=== PATIENT | male | born 1975 | race Caucasian/White ===

== ENCOUNTER 2023-08-08 12:14 | Inpatient (IN) | payer MEDICAID, OTHER ==
[2023-08-08] VITALS (38 sets, daily range): BP systolic 84–138; BP diastolic 49–97; PULSE 66–132; RESP 14–35; TEMP 98.4–99; O2SAT 88–100
[~2023-08-08] VITALS: Ht 175.3 cm; Wt 96.7 kg
[2023-08-08] MEDS ORDERED: ETOMIDATE (2MG/ML) 20ML VIAL IV ONE (12:22)
[2023-08-08] MEDS ORDERED: SUCCINYLCHOLINE CHLORIDE 20 MG/ML 10ML VIAL IV ONE ×2 (12:22→12:25)
[2023-08-08] MEDS ORDERED: PROPOFOL 100 ML IV ONE (12:26)
[2023-08-08] MEDS: PROPOFOL 100 ML IV SCH ×4 (12:27→21:56)
[2023-08-08] MEDS ORDERED: MIDAZOLAM DRIP 50 mg/50mL 50 ML IV ONE (12:42)
[2023-08-08] MEDS: MIDAZOLAM DRIP 50 mg/50mL 50 ML IV SCH ×4 (12:43→21:55)
[2023-08-08] MEDS ORDERED: SODIUM CHLORIDE 0.9% 1,000 ML IVB ONE (12:45)
[2023-08-08 12:53] LABS: Hematocrit 54.4 % (41.0-53.0); Hemoglobin 18.6 g/dL (13.5-17.5); Mean Corpuscular Hgb Conc. 34.3 g/dL (32.0-36.0); Mean Corpuscular Volume 96.2 fL (80.0-100.0); Red Blood Cells 5.65 10^6/uL (4.5-5.90); Red Cell Distribution Width 12.9 % (11.8-14.3)
[2023-08-08] MEDS ORDERED: fentaNYL Drip 2500mCg/250mlNS 250 ML IV ONE (13:06)
[2023-08-08] MEDS: fentaNYL Drip 2500mCg/250mlNS 250 ML IV SCH ×2 (13:07→14:02)
[2023-08-08 13:09] LABS: INR 1.22 (0.9-1.15); Partial Thromboplastin Time 30.4 SEC (24.5-34.5); Prothrombin Time 12.6 sec (9.3-11.8)
[2023-08-08 13:10] LABS: Alanine Aminotransferase 30 U/L (7-40); Albumin 5.5 g/dL (3.2-4.8); Alkaline Phosphatase 90 U/L (46-116); Anion Gap 16 (5-15); Aspartate Aminotransferase 42 U/L (13-40); BUN/Creatinine Ratio 11.8 (10.0-20.0); Bilirubin, Total 1.2 mg/dL (0.2-1.0); Blood Alcohol < 3.0 mg/dL (<10); Blood Urea Nitrogen 18 mg/dL (9-23); Calcium 9.3 mg/dL (8.7-10.4); Carbon Dioxide 19 mmol/L (20-30); Chloride 106 mmol/L (98-107); Glucose 172 mg/dL (74-106); Lactic Acid w/Reflex 6.2 mmol/L (0.4-2.0); Potassium 4.3 mmol/L (3.5-5.1); Sodium 141 mmol/L (136-145); Total Protein 8.6 g/dL (5.7-8.2); White Blood Cell 35.1 10^3/uL (4.4-10.8)
[2023-08-08 13:12] LABS: Basophils % (manual) 0 (0.0-2.0); Blast Cells 0; Eosinophils % (manual) 0 (0-7); Metamyelocytes % 0; Myelocytes % 0; Promyelocytes % 0; Reactive Lymphocytes 0
[2023-08-08] MEDS ORDERED: SODIUM CHLORIDE 0.9% 1,000 ML IV ONE (13:45)
[2023-08-08] MEDS ORDERED: cefTRIAXone 1GM/50ML D5W 50 ML IV ONE ×2 (13:45→14:00)
[2023-08-08] MEDS ORDERED: levoFLOXacin 500MG 100 ML IV ONE ×2 (13:45→14:00)
[2023-08-08 13:47] LABS: Band Neutrophils % (manual) 4; Lymphocytes % (manual) 2 (10.0-50.0); Monocytes % (manual) 7 (0-12); Platelet Estimate Adequate
[2023-08-08 13:52] LABS: Urine Bacteria FEW /hpf (None Seen); Urine Blood 3+ /uL (Negative); Urine Clarity CLOUDY (Clear); Urine Color Red (Yellow); Urine Hyaline Cast MOD /lpf (0 - 2); Urine Mucus FEW (None Seen); Urine Protein, UAD 2+ (Negative); Urine Specific Gravity 1.017 (1.001-1.035); Urine Urobilinogen Normal (Negative); Urine WBC 143 /hpf (0 - 3); Urine WBC Clumps PRESENT /hpf (None Seen)
[2023-08-08 14:08] LABS: Amphetamine Screen, Urine Neg (NEGATIVE)
[2023-08-08 14:09] LABS: Barbiturate Scree,Urine Neg (NEGATIVE); Benzodiazephine Screen, Urine Pos (NEGATIVE); Cannabinoid Screen, Urine Pos (NEGATIVE); Cocaine Screen, Urine Neg (NEGATIVE); Opiate Scree,Urine Neg (NEGATIVE); Phencyclidine Screen, Urine Neg (NEGATIVE)
[2023-08-08] MEDS ORDERED: SODIUM CHLORIDE 0.9% 2,450 ML IV ONE (15:45)
[2023-08-08] MEDS ORDERED: ONDANSETRON HCL 4 MG/2 ML VIAL IV PRN (15:45)
[2023-08-08] MEDS: SODIUM CHLORIDE 0.9% 1,000 ML IV SCH ×2 (15:45→20:49)
[2023-08-08] MEDS ORDERED: ACETAMINOPHEN 325 MG TAB PO PRN (15:45)
[2023-08-08] MEDS ORDERED: VANCOMYCIN PER PHARMACY 1,000 MG IV SCH (15:45)
[2023-08-08] MEDS ORDERED: MORPHINE SULFATE INJ 2 MG/ml SYRG IV PRN (15:45)
[2023-08-08] MEDS ORDERED: NITROGLYCERIN 0.4 MG SL TAB SL PRN (15:45)
[2023-08-08] MEDS ORDERED: DEXTROSE (50%) 50ML SYRG IV PRN (16:00)
[2023-08-08] MEDS ORDERED: VANCOMYCIN 1GM/250ML 250 ML IV SCH (17:00)
[2023-08-08] MEDS: ACCU-CHEK COMFORT CURVE STRIP VI SCH ×2 (18:00→23:32)
[2023-08-08] MEDS: InsuLIN REG 1unit/0.01ml Soln (100units/ml) SC SCH ×2 (18:00→23:32)
[2023-08-08] MEDS: NOREPINEPHRINE 8 MG/250ML KIT 250 ML IV SCH (19:31)
[2023-08-08] MEDS: VANCOMYCIN 1GM/250ML 250 ML IV SCH (20:48)
[2023-08-08] MEDS: FOLIC ACID 1 MG, MULTIPLE VITAMIN 10 ML, THIAMINE INJ 100 MG in SODIUM CHLORIDE 0.9% 1,... INJ SCH (21:20)
[2023-08-08] MEDS: CEFEPIME 1GM/ 50ML 50 ML IV SCH (22:40)
[2023-08-09] VITALS (111 sets, daily range): BP systolic 85–123; BP diastolic 45–81; PULSE 62–86; RESP 12–17; TEMP 97.5–98.6; O2SAT 96–99
[2023-08-09] MEDS: MIDAZOLAM DRIP 50 mg/50mL 50 ML IV SCH ×4 (01:21→18:39)
[2023-08-09] MEDS: PROPOFOL 100 ML IV SCH ×4 (01:47→22:14)
[2023-08-09 04:19] LABS: Basophils # (auto) 0 10 ^3/uL (0-0.2); Basophils % (auto) 0.1 % (0.0-2.0); Eosinophils # (auto) 0 10 ^3/uL (0-0.8); Hematocrit 42.9 % (41.0-53.0); Hemoglobin 14.8 g/dL (13.5-17.5); Lymphocytes # (auto) 0.8 10 ^3/uL (0.4-5.4); Lymphocytes % (auto) 4.4 % (10.0-50.0); Mean Corpuscular Hemoglobin 33.3 pg (28.0-32.0); Mean Corpuscular Hgb Conc. 34.5 g/dL (32.0-36.0); Mean Corpuscular Volume 96.5 fL (80.0-100.0); Monocytes % (auto) 10.7 % (0.0-12.0); Neutrophils # (auto) 15.6 10 ^3/uL (1.6-8.6); Neutrophils % (auto) 84.8 % (37.0-80.0); Red Blood Cells 4.45 10^6/uL (4.5-5.90); Red Cell Distribution Width 13.4 % (11.8-14.3); White Blood Cell 18.4 10^3/uL (4.4-10.8)
[2023-08-09] MEDS: CEFEPIME 1GM/ 50ML 50 ML IV SCH ×3 (05:07→21:11)
[2023-08-09 05:11] LABS: Alanine Aminotransferase 24 U/L (7-40); Albumin 3.9 g/dL (3.2-4.8); Alkaline Phosphatase 44 U/L (46-116); Anion Gap 11 (5-15); Aspartate Aminotransferase 34 U/L (13-40); BUN/Creatinine Ratio 9.2 (10.0-20.0); Bilirubin, Total 0.6 mg/dL (0.2-1.0); Blood Urea Nitrogen 27 mg/dL (9-23); Calcium 8.1 mg/dL (8.5-10.1); Carbon Dioxide 16 mmol/L (20-30); Chloride 112 mmol/L (98-107); Glucose 114 mg/dL (74-106); Potassium 5.2 mmol/L (3.5-5.1); Sodium 139 mmol/L (136-145); Total Protein 6.2 g/dL (5.7-8.2)
[2023-08-09] MEDS: InsuLIN REG 1unit/0.01ml Soln (100units/ml) SC SCH ×3 (05:14→17:41)
[2023-08-09] MEDS: ACCU-CHEK COMFORT CURVE STRIP VI SCH ×3 (05:15→17:37)
[2023-08-09] MEDS: fentaNYL Drip 2500mCg/250mlNS 250 ML IV SCH (05:23)
[2023-08-09] MEDS: SODIUM CHLORIDE 0.9% 1,000 ML IV SCH ×2 (08:25→16:45)
[2023-08-09] MEDS: ENOXAPARIN SOD 40 MG/0.4 ML SYRINGE SC SCH (10:11)
[2023-08-09] MEDS: VANCOMYCIN 1GM/250ML 250 ML IV SCH (10:11)
[2023-08-09] MEDS: PANTOPRAZOLE 40 MG/10 ML VIAL INJ IV SCH (10:11)
[2023-08-09] MEDS ORDERED: SOD CHL IV ONE (10:45)
[2023-08-09] MEDS ORDERED: SODIUM BICARBONATE IV ONE (10:45)
[2023-08-09] MEDS ORDERED: SODIUM BICARBONATE 50ML VIAL 50 ML in SOD CHL 0.45% 1,000 ML IV ONE (12:00)
[2023-08-09] MEDS: FOLIC ACID 1 MG, MULTIPLE VITAMIN 10 ML, THIAMINE INJ 100 MG in SODIUM CHLORIDE 0.9% 1,... INJ SCH (12:00)
[2023-08-09 15:03] LABS: Base Excess -13.5 mmol/L (-2.0-2.0)
[2023-08-09] MEDS ORDERED: LIDOCAINE 1% (LOCAL ANESTH.) PF 5ml SDV ID ONE (17:00)
[2023-08-09] MEDS ORDERED: SODIUM BICARBONATE 8.4 % INJ 50ML VIAL IV ONE (18:00)
[2023-08-09] MEDS: NOREPINEPHRINE 8 MG/250ML KIT 250 ML IV SCH ×2 (18:45→23:49)
[2023-08-09] MEDS: SODIUM CHLOR 0.9% PF (SALINE LOCK) 10ML VIAL/SYR IV SCH (22:13)
[2023-08-10] VITALS (108 sets, daily range): BP systolic 92–127; BP diastolic 40–81; PULSE 58–96; RESP 14–19; TEMP 96.4–98.8; O2SAT 93–100
[2023-08-10] MEDS: ACCU-CHEK COMFORT CURVE STRIP VI SCH ×2 (00:16→05:17)
[2023-08-10] MEDS: SODIUM CHLORIDE 0.9% 1,000 ML IV SCH ×3 (01:05→15:18)
[2023-08-10 04:16] LABS: Basophils # (auto) 0 10 ^3/uL (0-0.2); Basophils % (auto) 0.2 % (0.0-2.0); Eosinophils # (auto) 0 10 ^3/uL (0-0.8); Eosinophils % (auto) 0.1 % (0.0-7.0); Hematocrit 37.7 % (41.0-53.0); Lymphocytes # (auto) 0.7 10 ^3/uL (0.4-5.4); Lymphocytes % (auto) 6.6 % (10.0-50.0); Mean Corpuscular Hgb Conc. 34.5 g/dL (32.0-36.0); Mean Corpuscular Volume 95.5 fL (80.0-100.0); Monocytes # (auto) 1.1 10 ^3/uL (0-1.3); Monocytes % (auto) 10.8 % (0.0-12.0); Neutrophils # (auto) 8.2 10 ^3/uL (1.6-8.6); Neutrophils % (auto) 82.3 % (37.0-80.0); Red Blood Cells 3.95 10^6/uL (4.5-5.90); Red Cell Distribution Width 13.6 % (11.8-14.3)
[2023-08-10 04:23] LABS: Chloride 111 mmol/L (98-107); Sodium 141 mmol/L (136-145)
[2023-08-10 04:24] LABS: Anion Gap 12 (5-15); Carbon Dioxide 18 mmol/L (20-30)
[2023-08-10 04:29] LABS: BUN/Creatinine Ratio 6.1 (10.0-20.0); Blood Urea Nitrogen 33 mg/dL (9-23); Glucose 90 mg/dL (74-106)
[2023-08-10] MEDS: InsuLIN REG 1unit/0.01ml Soln (100units/ml) SC SCH ×2 (05:17)
[2023-08-10] MEDS: PROPOFOL 100 ML IV SCH ×2 (05:37→09:34)
[2023-08-10] MEDS: MIDAZOLAM DRIP 50 mg/50mL 50 ML IV SCH (05:38)
[2023-08-10] MEDS: fentaNYL Drip 2500mCg/250mlNS 250 ML IV SCH (05:39)
[2023-08-10 07:00] LABS: Base Excess -9.7 mmol/L (-2.0-2.0)
[2023-08-10] MEDS: PANTOPRAZOLE 40 MG/10 ML VIAL INJ IV SCH (09:33)
[2023-08-10] MEDS: CEFEPIME 1GM/ 50ML 50 ML IV SCH ×2 (09:33→21:29)
[2023-08-10] MEDS: SODIUM CHLOR 0.9% PF (SALINE LOCK) 10ML VIAL/SYR IV SCH ×2 (09:35→21:01)
[2023-08-10] MEDS: ENOXAPARIN SOD 40 MG/0.4 ML SYRINGE SC SCH (09:35)
[2023-08-10] MEDS: FOLIC ACID 1 MG, MULTIPLE VITAMIN 10 ML, THIAMINE INJ 100 MG in SODIUM CHLORIDE 0.9% 1,... INJ SCH (12:15)
[2023-08-10] MEDS ORDERED: SODIUM BICARBONATE 50ML VIAL 50 ML in SOD CHL 0.45% 1,000 ML IV ONE (15:20)
[2023-08-10] MEDS ORDERED: BUMETANIDE 2.5mg/10ml (0.25 mg/ml) INJ IV ONE (15:30)
[2023-08-11] VITALS (108 sets, daily range): BP systolic 112–162; BP diastolic 66–99; PULSE 72–88; RESP 13–23; TEMP 98.1–98.8; O2SAT 96–100
[2023-08-11 04:31] LABS: Basophils # (auto) 0 10 ^3/uL (0-0.2); Basophils % (auto) 0.1 % (0.0-2.0); Eosinophils # (auto) 0 10 ^3/uL (0-0.8); Eosinophils % (auto) 0.1 % (0.0-7.0); Hematocrit 35.5 % (41.0-53.0); Hemoglobin 12.3 g/dL (13.5-17.5); Lymphocytes # (auto) 0.4 10 ^3/uL (0.4-5.4); Mean Corpuscular Hemoglobin 33.2 pg (28.0-32.0); Mean Corpuscular Hgb Conc. 34.6 g/dL (32.0-36.0); Monocytes # (auto) 0.7 10 ^3/uL (0-1.3); Monocytes % (auto) 8.1 % (0.0-12.0); Neutrophils # (auto) 7.2 10 ^3/uL (1.6-8.6); Neutrophils % (auto) 86.7 % (37.0-80.0); Red Cell Distribution Width 13.2 % (11.8-14.3); White Blood Cell 8.3 10^3/uL (4.4-10.8)
[2023-08-11 05:08] LABS: Chloride 111 mmol/L (98-107); Potassium 4.2 mmol/L (3.5-5.1); Sodium 141 mmol/L (136-145)
[2023-08-11 05:09] LABS: Anion Gap 14 (5-15); Calcium 7.8 mg/dL (8.7-10.4); Carbon Dioxide 16 mmol/L (20-30)
[2023-08-11 05:14] LABS: BUN/Creatinine Ratio 5.3 (10.0-20.0); Blood Urea Nitrogen 36 mg/dL (9-23); Glucose 62 mg/dL (74-106)
[2023-08-11] MEDS: SODIUM CHLORIDE 0.9% 1,000 ML IV SCH ×3 (05:36→19:05)
[2023-08-11] MEDS: ENOXAPARIN SOD 40 MG/0.4 ML SYRINGE SC SCH (10:00)
[2023-08-11] MEDS ORDERED: FUROSEMIDE 100 MG/10ML VIAL IV SCH (10:00)
[2023-08-11] MEDS: CEFEPIME 1GM/ 50ML 50 ML IV SCH ×2 (10:35→21:04)
[2023-08-11] MEDS: PANTOPRAZOLE 40 MG/10 ML VIAL INJ IV SCH (10:36)
[2023-08-11] MEDS: SODIUM CHLOR 0.9% PF (SALINE LOCK) 10ML VIAL/SYR IV SCH ×2 (10:36→21:04)
[2023-08-11] MEDS: FOLIC ACID 1 MG, MULTIPLE VITAMIN 10 ML, THIAMINE INJ 100 MG in SODIUM CHLORIDE 0.9% 1,... INJ SCH (13:01)
[2023-08-11] MEDS: PROPOFOL 100 ML IV SCH (13:45)
[2023-08-11] MEDS: fentaNYL Drip 2500mCg/250mlNS 250 ML IV SCH (13:45)
[2023-08-11] MEDS: MIDAZOLAM DRIP 50 mg/50mL 50 ML IV SCH (13:45)
[2023-08-11 14:42] LABS: Base Excess -14.9 mmol/L (-2.0-2.0)
[2023-08-11] MEDS ORDERED: SODIUM BICARBONATE 8.4 % INJ 50ML VIAL IV ONE (15:45)
[2023-08-11] MEDS ORDERED: SODIUM BICARBONATE 50ML VIAL 50 ML in SOD CHL 0.45% 1,000 ML IV ONE (18:15)
[2023-08-11] MEDS: NOREPINEPHRINE 8 MG/250ML KIT 250 ML IV SCH (18:45)
[2023-08-12] VITALS (48 sets, daily range): BP systolic 121–196; BP diastolic 73–119; PULSE 16–112; RESP 12–25; TEMP 98.1–99.2; O2SAT 92–99
[2023-08-12 04:12] LABS: Basophils # (auto) 0 10 ^3/uL (0-0.2); Basophils % (auto) 0.2 % (0.0-2.0); Eosinophils # (auto) 0 10 ^3/uL (0-0.8); Eosinophils % (auto) 0.2 % (0.0-7.0); Hematocrit 34.7 % (41.0-53.0); Hemoglobin 12.1 g/dL (13.5-17.5); Lymphocytes # (auto) 0.4 10 ^3/uL (0.4-5.4); Lymphocytes % (auto) 5.1 % (10.0-50.0); Mean Corpuscular Hemoglobin 33.3 pg (28.0-32.0); Mean Corpuscular Hgb Conc. 34.8 g/dL (32.0-36.0); Mean Corpuscular Volume 95.6 fL (80.0-100.0); Monocytes # (auto) 0.8 10 ^3/uL (0-1.3); Monocytes % (auto) 10.8 % (0.0-12.0); Neutrophils # (auto) 6.5 10 ^3/uL (1.6-8.6); Neutrophils % (auto) 83.7 % (37.0-80.0); Red Blood Cells 3.63 10^6/uL (4.5-5.90); Red Cell Distribution Width 13.1 % (11.8-14.3); White Blood Cell 7.8 10^3/uL (4.4-10.8)
[2023-08-12 04:26] LABS: Chloride 114 mmol/L (98-107); Potassium 4.4 mmol/L (3.5-5.1); Sodium 144 mmol/L (136-145)
[2023-08-12 04:27] LABS: Anion Gap 16 (5-15); Calcium 7.9 mg/dL (8.7-10.4); Carbon Dioxide 14 mmol/L (20-30)
[2023-08-12 04:32] LABS: BUN/Creatinine Ratio 5.8 (10.0-20.0); Glucose 92 mg/dL (74-106)
[2023-08-12 04:36] LABS: Blood Urea Nitrogen 48 mg/dL (9-23)
[2023-08-12] MEDS: SODIUM CHLORIDE 0.9% 1,000 ML IV SCH (05:39)
[2023-08-12] MEDS: fentaNYL Drip 2500mCg/250mlNS 250 ML IV SCH (08:33)
[2023-08-12] MEDS: MIDAZOLAM DRIP 50 mg/50mL 50 ML IV SCH (08:34)
[2023-08-12 09:27] LABS: Hepatitis B Surface Antigen Negative (Negative)
[2023-08-12 09:48] LABS: Hepatitis A Ab IgM Negative
[2023-08-12 09:49] LABS: Hepatitis B Core IgM Negative; Hepatitis C Antibody Negative (Negative)
[2023-08-12] MEDS ORDERED: SODIUM BICARBONATE 50ML VIAL 100 ML in D5W 5% 1,000 ML IV SCH (10:00)
== END 2023-08-12 10:45 | disposition short-term general hospital (02) | DRG 720 ==
LOC: EDBD 12:14 → ER 12:14 → TELE 15:55 → ICU WEST 17:10
PROVIDERS: ADMIT Nurse Practitioner Family; ATTEND Internal Medicine Pulmonary Disease
PROC: 5A1955Z Respiratory Ventilation, Greater than 96 Consecutive Hours (ICD-10-PCS; principal; 2023-08-08)
PROC: 0BH17EZ Insertion of Endotracheal Airway into Trachea, Via Natural or Artificial Opening (ICD-10-PCS; 2023-08-08)
PROC: 02HV33Z Insertion of Infusion Device into Superior Vena Cava, Percutaneous Approach (ICD-10-PCS; 2023-08-09)
PROC: B548ZZA Ultrasonography of Superior Vena Cava, Guidance (ICD-10-PCS; 2023-08-09)
DX: A41.9 Sepsis, unspecified organism (principal); N17.0 Acute kidney failure with tubular necrosis; J96.01 Acute respiratory failure with hypoxia; G92.9 Unspecified toxic encephalopathy; G40.901 Epilepsy, unspecified, not intractable, with status epilepticus; R65.21 Severe sepsis with septic shock; E87.21 Acute metabolic acidosis; F10.139 Alcohol abuse with withdrawal, unspecified; E86.0 Dehydration; N30.01 Acute cystitis with hematuria; N18.9 Chronic kidney disease, unspecified; E87.5 Hyperkalemia
CPT/HCPCS: 31500; 36415; 36569; 36600; 70450; 70551; 71045; 72125; 80048; 80053; 80074; 80307; 80320; 81001; 82550; 82553; 82805; 82962; 83036; 83605; 83735; 83970; 84100; 84484; 85007; 85025; 85027; 85384; 85610; 85730; 87040; 87070; 87077; 87081; 87086; 87205; 93005; 93306; 94002; 94003; 95819; 96361; 96365; 96368; 99291; C9113; G0378; J0696; J1956; J2250; J2704; J7060

== ENCOUNTER 2023-08-21 14:35 | Inpatient (IN) | payer MEDICAID ==
[~2023-08-21] VITALS: Ht 165.1 cm; Wt 89.0 kg
[2023-08-21 20:46] VITALS: BP 173/97; PULSE 94; PULSE 98; RESP 16; RESP 24; TEMP 99.4; O2SAT 93; O2SAT 94
[2023-08-21] MEDS ORDERED: ACETAMINOPHEN 325 MG TAB PO PRN (22:00)
[2023-08-21] MEDS ORDERED: MORPHINE SULFATE INJ 2 MG/ml SYRG IV PRN (22:00)
[2023-08-21] MEDS ORDERED: LORazepam 2MG/ML-1ML VIAL IV PRN (22:00)
[2023-08-21] MEDS ORDERED: ONDANSETRON HCL 4 MG/2 ML VIAL IV PRN (22:00)
[2023-08-21] MEDS ORDERED: NITROGLYCERIN 0.4 MG SL TAB SL PRN (22:00)
[2023-08-21] MEDS: ATORVASTATIN 20 MG TAB PO SCH (22:42)
[2023-08-21] MEDS: hydrALAZINE HCL 25 MG TAB PO SCH (22:42)
[2023-08-21] MEDS: VALPROIC ACID 250 MG/5 ML ORAL SOLN GT SCH (22:48)
[2023-08-21 23:01] LABS: Basophils # (auto) 0 10 ^3/uL (0-0.2); Basophils % (auto) 0.2 % (0.0-2.0); Eosinophils # (auto) 0 10 ^3/uL (0-0.8); Eosinophils % (auto) 0.1 % (0.0-7.0); Hematocrit 34.3 % (41.0-53.0); Hemoglobin 11.6 g/dL (13.5-17.5); Lymphocytes # (auto) 0.6 10 ^3/uL (0.4-5.4); Lymphocytes % (auto) 3.3 % (10.0-50.0); Mean Corpuscular Hemoglobin 32.2 pg (28.0-32.0); Mean Corpuscular Hgb Conc. 33.6 g/dL (32.0-36.0); Mean Corpuscular Volume 95.7 fL (80.0-100.0); Monocytes # (auto) 1.7 10 ^3/uL (0-1.3); Neutrophils # (auto) 16.6 10 ^3/uL (1.6-8.6); Neutrophils % (auto) 87.4 % (37.0-80.0); Red Blood Cells 3.59 10^6/uL (4.5-5.90); Red Cell Distribution Width 12.8 % (11.8-14.3)
[2023-08-21 23:21] LABS: Alanine Aminotransferase 37 U/L (7-40); Albumin 3.9 g/dL (3.2-4.8); Alkaline Phosphatase 85 U/L (46-116); Anion Gap 14 (5-15); Aspartate Aminotransferase 37 U/L (13-40); BUN/Creatinine Ratio 15.3 (10.0-20.0); Calcium 8.9 mg/dL (8.7-10.4); Carbon Dioxide 28 mmol/L (20-30); Chloride 104 mmol/L (98-107); Glucose 103 mg/dL (74-106); Potassium 3.1 mmol/L (3.5-5.1); Sodium 146 mmol/L (136-145)
[2023-08-21 23:22] LABS: Bilirubin, Total 0.3 mg/dL (0.2-1.0); Total Protein 6.6 g/dL (5.7-8.2)
[2023-08-21 23:24] LABS: Blood Urea Nitrogen 98 mg/dL (9-23)
[2023-08-21] MEDS ORDERED: POTASSIUM CHL 20MEQ/100ML 100 ML IV ONE (23:45)
[2023-08-21] MEDS ORDERED: cefTRIAXone 1GM/50ML D5W 50 ML IV ONE (23:45)
[2023-08-22] VITALS (14 sets, daily range): BP systolic 122–194; BP diastolic 45–128; PULSE 78–102; RESP 10–25; TEMP 96.8–99.4; O2SAT 90–97
[2023-08-22] MEDS: HEPARIN SODIUM (PORCINE) 5000 UNITS/ML 1ML VIAL SC SCH ×3 (00:21→21:09)
[2023-08-22] MEDS: VALPROIC ACID 250 MG/5 ML ORAL SOLN GT SCH ×2 (10:00→21:06)
[2023-08-22] MEDS ORDERED: FOLIC ACID 1 MG TAB PO SCH (10:00)
[2023-08-22] MEDS ORDERED: FOLIC ACID 1 MG, MULTIPLE VITAMIN 10 ML, MAGNESIUM SULF SDV 50% 8 MEQ, THIAMINE INJ 100... INJ SCH ×5 (12:00)
[2023-08-22 13:17] LABS: Urine Bacteria FEW /hpf (None Seen); Urine Blood 1+ /uL (Negative); Urine Clarity Clear (Clear); Urine Color Colorless (Yellow); Urine Protein, UAD 1+ (Negative); Urine Specific Gravity 1.014 (1.001-1.035); Urine Urobilinogen Normal (Negative); Urine WBC 2 /hpf (0 - 3)
[2023-08-22] MEDS: hydrALAZINE HCL 25 MG TAB PO SCH ×2 (13:52→21:06)
[2023-08-22] MEDS: ALLOPURINOL 100 MG TAB PO SCH (13:52)
[2023-08-22 14:00] LABS: Sodium Urine 36 mmol/L (40-220)
[2023-08-22 14:05] LABS: Protein, Urine 85.7 mg/dL (0.0-11.9)
[2023-08-22 14:06] LABS: Amphetamine Screen, Urine Neg (NEGATIVE); Barbiturate Scree,Urine Neg (NEGATIVE); Benzodiazephine Screen, Urine Pos (NEGATIVE); Cocaine Screen, Urine Neg (NEGATIVE); Opiate Scree,Urine Neg (NEGATIVE)
[2023-08-22 14:07] LABS: Creatinine, Urine 72.19 mg/dL (30.0-125.0); Phencyclidine Screen, Urine Neg (NEGATIVE); Urine Protein/Creatinine Ratio 1.19
[2023-08-22 14:45] LABS: Cannabinoid Screen, Urine Pos (NEGATIVE)
[2023-08-22 15:02] LABS: Magnesium 2.7 mg/dL (1.6-2.6)
[2023-08-22 15:04] LABS: Phosphorus 5.7 mg/dL (2.4-5.1)
[2023-08-22] MEDS: OCTREOTIDE ACETATE 100 MCG/ML VL SUBCUT SCH ×2 (15:44→21:08)
[2023-08-22] MEDS: SOD CHL 0.45% 1,000 ML IV SCH ×2 (18:31→23:30)
[2023-08-22] MEDS: ATORVASTATIN 20 MG TAB PO SCH (21:06)
[2023-08-22] MEDS: cefTRIAXone 1GM/50ML D5W 50 ML IV SCH (21:07)
[2023-08-23] VITALS (14 sets, daily range): BP systolic 139–206; BP diastolic 80–112; PULSE 59–91; RESP 10–16; TEMP 97.4–98.4; O2SAT 92–97
[2023-08-23] MEDS: cloNIDine HCL 0.1 MG TAB PO PRN ×2 (02:21→06:44)
[2023-08-23] MEDS: hydrALAZINE HCL 25 MG TAB PO SCH ×3 (05:29→22:59)
[2023-08-23] MEDS: OCTREOTIDE ACETATE 100 MCG/ML VL SUBCUT SCH ×3 (05:30→22:59)
[2023-08-23 05:31] LABS: Basophils # (auto) 0.1 10 ^3/uL (0-0.2); Basophils % (auto) 0.8 % (0.0-2.0); Eosinophils # (auto) 0.1 10 ^3/uL (0-0.8); Eosinophils % (auto) 0.4 % (0.0-7.0); Hematocrit 31.6 % (41.0-53.0); Hemoglobin 10.8 g/dL (13.5-17.5); Lymphocytes # (auto) 0.8 10 ^3/uL (0.4-5.4); Lymphocytes % (auto) 6.4 % (10.0-50.0); Mean Corpuscular Hemoglobin 32.7 pg (28.0-32.0); Mean Corpuscular Hgb Conc. 34.1 g/dL (32.0-36.0); Mean Corpuscular Volume 95.8 fL (80.0-100.0); Monocytes # (auto) 1.3 10 ^3/uL (0-1.3); Monocytes % (auto) 10.1 % (0.0-12.0); Neutrophils # (auto) 10.5 10 ^3/uL (1.6-8.6); Neutrophils % (auto) 82.3 % (37.0-80.0); Red Cell Distribution Width 12.6 % (11.8-14.3); White Blood Cell 12.7 10^3/uL (4.4-10.8)
[2023-08-23 05:43] LABS: Anion Gap 11 (5-15); Carbon Dioxide 28 mmol/L (20-30); Chloride 105 mmol/L (98-107); Potassium 3.1 mmol/L (3.5-5.1); Sodium 144 mmol/L (136-145)
[2023-08-23 05:47] LABS: Calcium 8.2 mg/dL (8.5-10.1)
[2023-08-23 05:50] LABS: BUN/Creatinine Ratio 20.4 (10.0-20.0); Glucose 93 mg/dL (74-106)
[2023-08-23 06:00] LABS: Blood Urea Nitrogen 95 mg/dL (9-23)
[2023-08-23] MEDS: VALPROIC ACID 250 MG/5 ML ORAL SOLN GT SCH (10:15)
[2023-08-23] MEDS: ALLOPURINOL 100 MG TAB PO SCH (10:15)
[2023-08-23] MEDS: SOD CHL 0.45% 1,000 ML IV SCH ×2 (10:15→19:34)
[2023-08-23] MEDS: HEPARIN SODIUM (PORCINE) 5000 UNITS/ML 1ML VIAL SC SCH ×2 (10:16→22:44)
[2023-08-23] MEDS ORDERED: POTASSIUM CHLORIDE 40 MEQ, LIDOCAINE 1% (LOCAL ANESTH.) 4 ML in SODIUM CHL 0.9% 250 ML IV ONE (11:00)
[2023-08-23] MEDS ORDERED: amLODIPine BESYLATE 5 MG TAB PO ONE (11:30)
[2023-08-23] MEDS: FOLIC ACID 1 MG, MULTIPLE VITAMIN 10 ML, MAGNESIUM SULF SDV 50% 8 MEQ, THIAMINE INJ 100... INJ SCH ×5 (12:49)
[2023-08-23] MEDS: cefTRIAXone 1GM/50ML D5W 50 ML IV SCH (21:10)
[2023-08-23] MEDS: QUEtiapine FUMARATE 25 MG TAB PO SCH (22:59)
[2023-08-23] MEDS: MIRTAZAPINE 30 MG TAB PO SCH (23:00)
[2023-08-23] MEDS: ATORVASTATIN 20 MG TAB PO SCH (23:00)
[2023-08-23] MEDS ORDERED: VALPROIC ACID 250 MG/5 ML ORAL SOLN PO SCH (23:00)
[2023-08-23] MEDS ORDERED: VALPROIC ACID 250 MG/5 ML ORAL SOLN PO ONE (23:30)
[2023-08-24 05:39] LABS: Basophils # (auto) 0.1 10 ^3/uL (0-0.2); Basophils % (auto) 0.5 % (0.0-2.0); Eosinophils # (auto) 0.1 10 ^3/uL (0-0.8); Eosinophils % (auto) 0.9 % (0.0-7.0); Hematocrit 30.6 % (41.0-53.0); Hemoglobin 10.8 g/dL (13.5-17.5); Lymphocytes # (auto) 0.8 10 ^3/uL (0.4-5.4); Mean Corpuscular Hemoglobin 33.8 pg (28.0-32.0); Mean Corpuscular Hgb Conc. 35.3 g/dL (32.0-36.0); Mean Corpuscular Volume 95.6 fL (80.0-100.0); Monocytes # (auto) 1.2 10 ^3/uL (0-1.3); Monocytes % (auto) 10.8 % (0.0-12.0); Neutrophils # (auto) 8.9 10 ^3/uL (1.6-8.6); Neutrophils % (auto) 80.8 % (37.0-80.0); Nucleated Red Blood Cells % 0.1 %; Red Cell Distribution Width 12.2 % (11.8-14.3); White Blood Cell 10.9 10^3/uL (4.4-10.8)
[2023-08-24] MEDS: SOD CHL 0.45% 1,000 ML IV SCH ×2 (05:40→16:05)
[2023-08-24] MEDS: hydrALAZINE HCL 25 MG TAB PO SCH ×3 (05:42→21:38)
[2023-08-24 05:50] LABS: Anion Gap 10 (5-15); Carbon Dioxide 26 mmol/L (20-30); Chloride 106 mmol/L (98-107); Potassium 3.3 mmol/L (3.5-5.1); Sodium 142 mmol/L (136-145)
[2023-08-24 05:51] LABS: Calcium 8.2 mg/dL (8.7-10.4)
[2023-08-24 05:56] LABS: BUN/Creatinine Ratio 20.7 (10.0-20.0); Glucose 86 mg/dL (74-106)
[2023-08-24 05:58] LABS: Blood Urea Nitrogen 72 mg/dL (9-23)
[2023-08-24] MEDS: OCTREOTIDE ACETATE 100 MCG/ML VL SUBCUT SCH ×3 (05:58→21:45)
[2023-08-24 08:00] VITALS: PULSE 76; PULSE 79; RESP 17
[2023-08-24] MEDS ORDERED: HEPARIN SODIUM (PORCINE) 5000 UNITS/ML 1ML VIAL ONE (09:53)
[2023-08-24] MEDS: VALPROIC ACID 250 MG/5 ML ORAL SOLN PO SCH ×2 (10:01→21:38)
[2023-08-24] MEDS: ALLOPURINOL 100 MG TAB PO SCH (10:01)
[2023-08-24] MEDS: amLODIPine BESYLATE 5 MG TAB PO SCH (10:02)
[2023-08-24] MEDS: HEPARIN SODIUM (PORCINE) 5000 UNITS/ML 1ML VIAL SC SCH ×2 (10:03→21:45)
[2023-08-24] MEDS: FOLIC ACID 1 MG, MULTIPLE VITAMIN 10 ML, MAGNESIUM SULF SDV 50% 8 MEQ, THIAMINE INJ 100... INJ SCH ×5 (12:44)
[2023-08-24] MEDS: cloNIDine HCL 0.1 MG TAB PO PRN (17:30)
[2023-08-24] MEDS ORDERED: LABETALOL HCL 5 MG/ML 4ML SYRINGE IV ONE (18:45)
[2023-08-24 20:00] VITALS: PULSE 77; RESP 17
[2023-08-24] MEDS: cefTRIAXone 1GM/50ML D5W 50 ML IV SCH (21:33)
[2023-08-24] MEDS: ATORVASTATIN 20 MG TAB PO SCH ×2 (21:38→21:50)
[2023-08-24] MEDS: MIRTAZAPINE 30 MG TAB PO SCH (21:38)
[2023-08-24] MEDS: QUEtiapine FUMARATE 25 MG TAB PO SCH ×2 (21:38→21:49)
[2023-08-24 22:00] VITALS: BP 174/101; PULSE 83; RESP 19; TEMP 98.5; O2SAT 95
[2023-08-25] VITALS (10 sets, daily range): BP systolic 136–188; BP diastolic 69–94; PULSE 76–89; RESP 16–20; TEMP 97.9–98.9; O2SAT 95–96
[2023-08-25] MEDS: SOD CHL 0.45% 1,000 ML IV SCH ×3 (01:30→21:30)
[2023-08-25] MEDS: hydrALAZINE HCL 25 MG TAB PO SCH ×3 (05:53→21:14)
[2023-08-25] MEDS: OCTREOTIDE ACETATE 100 MCG/ML VL SUBCUT SCH ×3 (05:54→21:24)
[2023-08-25] MEDS ORDERED: HEPARIN SODIUM (PORCINE) 5000 UNITS/ML 1ML VIAL ONE ×2 (09:48)
[2023-08-25] MEDS: VALPROIC ACID 250 MG/5 ML ORAL SOLN PO SCH ×2 (09:58→21:16)
[2023-08-25] MEDS: ALLOPURINOL 100 MG TAB PO SCH (09:59)
[2023-08-25] MEDS: cloNIDine HCL 0.1 MG TAB PO PRN ×3 (09:59→23:33)
[2023-08-25] MEDS: amLODIPine BESYLATE 5 MG TAB PO SCH (09:59)
[2023-08-25] MEDS: HEPARIN SODIUM (PORCINE) 5000 UNITS/ML 1ML VIAL SC SCH ×2 (10:18→21:19)
[2023-08-25] MEDS: FOLIC ACID 1 MG, MULTIPLE VITAMIN 10 ML, MAGNESIUM SULF SDV 50% 8 MEQ, THIAMINE INJ 100... INJ SCH ×5 (12:27)
[2023-08-25] MEDS: cefTRIAXone 1GM/50ML D5W 50 ML IV SCH (20:57)
[2023-08-25] MEDS: ATORVASTATIN 20 MG TAB PO SCH (21:15)
[2023-08-25] MEDS: MIRTAZAPINE 30 MG TAB PO SCH (22:00)
[2023-08-25] MEDS: QUEtiapine FUMARATE 25 MG TAB PO SCH (22:00)
[2023-08-26] VITALS (7 sets, daily range): BP systolic 142–171; BP diastolic 75–94; PULSE 74–89; RESP 17–18; TEMP 98.3–98.6; O2SAT 93–96
[2023-08-26] MEDS ORDERED: hydrALAZINE HCL 20 MG/ML VL IV ONE (01:00)
[2023-08-26] MEDS: hydrALAZINE HCL 25 MG TAB PO SCH ×3 (05:53→22:00)
[2023-08-26] MEDS: OCTREOTIDE ACETATE 100 MCG/ML VL SUBCUT SCH (05:58)
[2023-08-26] MEDS: SOD CHL 0.45% 1,000 ML IV SCH ×2 (07:30→16:39)
[2023-08-26] MEDS ORDERED: HEPARIN SODIUM (PORCINE) 5000 UNITS/ML 1ML VIAL ONE (09:12)
[2023-08-26] MEDS: amLODIPine BESYLATE 5 MG TAB PO SCH (09:25)
[2023-08-26] MEDS: VALPROIC ACID 250 MG/5 ML ORAL SOLN PO SCH ×2 (09:25→22:00)
[2023-08-26] MEDS: ALLOPURINOL 100 MG TAB PO SCH (09:26)
[2023-08-26] MEDS: HEPARIN SODIUM (PORCINE) 5000 UNITS/ML 1ML VIAL SC SCH ×2 (09:41→22:10)
[2023-08-26 16:13] LABS: Chloride 109 mmol/L (98-107); Potassium 3.2 mmol/L (3.5-5.1); Sodium 141 mmol/L (136-145)
[2023-08-26 16:14] LABS: Anion Gap 8 (5-15); Carbon Dioxide 24 mmol/L (20-30)
[2023-08-26 16:19] LABS: BUN/Creatinine Ratio 16.5 (10.0-20.0); Blood Urea Nitrogen 40 mg/dL (9-23); Glucose 84 mg/dL (74-106)
[2023-08-26] MEDS ORDERED: POTASSIUM EFFERVESENT TAB 25 MEQ PO ONE (17:00)
[2023-08-26] MEDS: FOLIC ACID 1 MG, MULTIPLE VITAMIN 10 ML, MAGNESIUM SULF SDV 50% 8 MEQ, THIAMINE INJ 100... INJ SCH ×5 (17:35)
[2023-08-26] MEDS: cefTRIAXone 1GM/50ML D5W 50 ML IV SCH (21:10)
[2023-08-26] MEDS: QUEtiapine FUMARATE 25 MG TAB PO SCH (22:00)
[2023-08-26] MEDS: MIRTAZAPINE 30 MG TAB PO SCH (22:00)
[2023-08-27] MEDS: SOD CHL 0.45% 1,000 ML IV SCH (03:30)
[2023-08-27 05:00] VITALS: BP 160/92; PULSE 76; RESP 18; TEMP 98.3; O2SAT 95
[2023-08-27] MEDS: hydrALAZINE HCL 25 MG TAB PO SCH (05:39)
[2023-08-27 05:55] LABS: Anion Gap 9 (5-15); Carbon Dioxide 25 mmol/L (20-30); Chloride 106 mmol/L (98-107); Potassium 3.4 mmol/L (3.5-5.1); Sodium 140 mmol/L (136-145)
[2023-08-27 05:56] LABS: Calcium 8.4 mg/dL (8.7-10.4)
[2023-08-27 06:01] LABS: Glucose 92 mg/dL (74-106)
[2023-08-27 06:32] LABS: Blood Urea Nitrogen 25 mg/dL (9-23)
[2023-08-27 08:00] VITALS: PULSE 79
[2023-08-27] MEDS ORDERED: POTASSIUM EFFERVESENT TAB 25 MEQ PO ONE (08:45)
[2023-08-27 09:00] VITALS: BP 153/89; PULSE 87; RESP 20; TEMP 98.4; O2SAT 94
[2023-08-27] MEDS: HEPARIN SODIUM (PORCINE) 5000 UNITS/ML 1ML VIAL SC SCH (10:22)
[2023-08-27] MEDS: amLODIPine BESYLATE 5 MG TAB PO SCH (10:22)
[2023-08-27] MEDS: VALPROIC ACID 250 MG/5 ML ORAL SOLN PO SCH (10:22)
[2023-08-27] MEDS ORDERED: VALP250S3 PO (10:43)
[2023-08-27] MEDS ORDERED: MIR30T PO (10:43)
[2023-08-27] MEDS ORDERED: QUET1TAB11 PO (10:43)
[2023-08-27 11:45] VITALS: BP 153/89; PULSE 92; TEMP 36.9
[2023-08-27] MEDS: FOLIC ACID 1 MG, MULTIPLE VITAMIN 10 ML, MAGNESIUM SULF SDV 50% 8 MEQ, THIAMINE INJ 100... INJ SCH ×5 (12:00)
== END 2023-08-27 13:19 | disposition home or self-care (01) | DRG 53 ==
LOC: DOU IN ICU 20:22 → TELE-WESTW 08-23 17:54
PROVIDERS: ADMIT Internal Medicine Pulmonary Disease; ATTEND Internal Medicine Pulmonary Disease
DX: G40.401 Other generalized epilepsy and epileptic syndromes, not intractable, with status epilepticus (principal); J96.01 Acute respiratory failure with hypoxia; I21.A1 Myocardial infarction type 2; G93.41 Metabolic encephalopathy; F10.139 Alcohol abuse with withdrawal, unspecified; E87.0 Hyperosmolality and hypernatremia; D64.9 Anemia, unspecified; N17.9 Acute kidney failure, unspecified; E87.6 Hypokalemia; I16.0 Hypertensive urgency; N39.0 Urinary tract infection, site not specified; F32.A Depression, unspecified; Z79.899 Other long term (current) drug therapy
CPT/HCPCS: 36415; 71045; 76775; 80048; 80053; 80307; 81001; 82306; 82570; 83735; 83970; 84100; 84156; 84300; 84484; 85025; 87040; 87081; 93005; 95819; G0378; J0696; J2001; J3480; J3490; J7060

== ENCOUNTER 2023-09-12 11:57 | Emergency (ER) | payer SELFPAY ==
[~2023-09-12] VITALS: Ht 180.3 cm; Wt 72.6 kg
[~2023-09-12 11:57] MED LIST: MIR30T PO; QUET1TAB11 PO; VALP250S3 PO
[2023-09-12 12:25] VITALS: BP 148/91; PULSE 73; RESP 18; TEMP 98.4; O2SAT 97
[2023-09-12] MEDS ORDERED: VALP250S3 PO (13:10)
== END 2023-09-12 13:22 | disposition home or self-care (01) ==
LOC: ER 11:57
DX: R56.9 Unspecified convulsions (principal); M54.9 Dorsalgia, unspecified; F10.239 Alcohol dependence with withdrawal, unspecified